=== PATIENT | male | born 1955 | race Caucasian/White ===

== ENCOUNTER → 2016-09-10 | Emergency (ER) | payer MEDICARE ==
[~2016-09-10] VITALS: Ht 180.3 cm; Wt 100.0 kg
[~2016-09-10] MED LIST: ACET325T45 PO; AMLO5TAB4 PO; DIPHTH/TET/ACEL PERTUSS (ADULT) 0.5 ML VIAL IM* ONE; DOCU240C14 PO; ERGO500037 PO; FAMO20TA18 PO; FLEETOIL PR; FLEETPED PR; HALO5AMP2 IM; LORA0.5T PO; MAGN400O4 PO; MULTI PO; RISS PO; SYN112 PO; TRAZ50TA18 PO; VLP250480 PO; [UNRECOGNIZED DRUG - CODE] PO; [UNRECOGNIZED DRUG - OTHER] PO
[2016-09-10 15:40] VITALS: Ht 180.3 cm; Wt 100.0 kg
--- NOTE | 2016-09-10 15:42 | ERD ---
ER Documentation Chief Complaint Date/Time DATE: 09/10/16 TIME: 15:37 Chief Complaint HPI 61-year-old male history of schizoaffective disorder who is an inpatient in a psychiatric facility who presents with facial laceration. The patient states that around 1 hour prior to arrival he was trying to walk very fast. He states that he was recently given Haldol. He felt wobbly. He fell to the ground hitting his head. The patient sustained a laceration to the forehead just between his eyebrows. He denies any loss of consciousness. He denies any prodrome of chest pain or shortness of breath. He does have a mild headache mild tenderness to the periorbital region on the right. He denies any neck pain. No numbness or tingling. Unknown tetanus status. ROS All systems reviewed and are negative except as per history of present illness. Medications Home Meds Reported Medications Mineral Oil* (Fleet* Mineral Oil Enema) 133 Ml Oil, [address] Q48H, ENEMA 09/10/16 Magnesium Hydroxide* (Milk Of Magnesia*) 400 Mg/5 Ml Oral.susp, 30 ML PO BID, ML 09/10/16 Trazodone Hcl* (Trazodone Hcl*) 50 Mg Tablet, 25 MG PO QHS, #30 TAB 09/10/16 Lorazepam* (Lorazepam*) 0.5 Mg Tablet, 0.5 MG PO Q6 Y for ANXIETY, TAB 09/10/16 [Hydroxyde] No Conflict Check, ML PO Q4 HYDROXIDE-MG HYDROXIDE-SIMETHICONE [id number]/5ML SUSP;30ML 30ML. 09/10/16 Acetaminophen* (Acetaminophen*) 325 Mg Tablet, 650 MG PO Q4H Y for PAIN AND OR ELEVATED TEMP, #30 TAB 09/10/16 Valproic Acid* (Valproic Acid* Liq) 250 Mg/5 Ml Syrup, 500 MG PO BID, ML 09/10/16 Risperidone* (Risperdal* Liq) 1 Mg/Ml Solution, 1 MG PO BID, ML 09/10/16 Psyllium Husk (With Sugar) (NATURAL FIBER 3.4G POWDER) 368 Gm Powder, 368 GM PO BID 09/10/16 Multivitamins* (Theragran*) 1 Tab Tab, 1 TAB PO DAILY, TAB 09/10/16 Levothyroxine Sodium* (Levothyroxine Sodium*) 112 Mcg Tablet, 112 MCG PO BEFORE BREAKFAST, #30 TAB 09/10/16 Haloperidol Lactate (HALOPERIDOL) 5 Mg/1 Ml Ampul, 5 MG IM BID 09/10/16 Famotidine* (Famotidine*) 20 Mg Tablet, 20 MG PO DAILY, #30 TAB 09/10/16 Ergocalciferol (Vitamin D2) (VITAMIN D2) 50,000 Unit Capsule, 42038 UNIT PO Q7D , CAP 09/10/16 Docusate Calcium* (Docusate Calcium*) 240 Mg Capsule, 240 MG PO DAILY, CAP 09/10/16 Amlodipine Besylate* (Norvasc*) 5 Mg Tablet, 5 MG PO DAILY, TAB 09/10/16 Discontinued Reported Medications Sod Phosphate/Sod Biphosphate* (Fleet* Enema Pediatric) 66.6 Ml Soln, 66.[address] Q48H Y for CONSTIPATION, ENEMA 09/10/16 Allergies Allergies: Coded Allergies: No Known Allergy (Unverified , 09/10/16) PMhx/Soc Schizoaffective disorder FmHx Family History: No diabetes Physical Exam Vitals Vital Signs Date Time Temp Pulse Resp B/P Pulse Ox O2 Delivery O2 Flow Rate FiO2 09/10/16 15:40 98.1 78 18 144/84 98 Physical Exam General: Well developed, well nourished, no acute distress Head: Small contusion to the forehead with a superficial oblique laceration approximately 2.0 cm just between the eyebrows right of midline, second superficial laceration approx 1.0 to the right lateral nasal bridge Eyes: Pupils equally reactive, EOM intact, no evidence of entrapment ENT: Moist mucous membranes Neck: Supple, no lymphadenopathy, No midline tenderness, deformities, step-offs to the cervical spine, full active and passive range of motion without midline pain. Respiratory: Lungs clear bilaterally, no distress Cardiovascular: RRR, no murmurs, rubs, or gallops Abdominal: Soft, non-tender, non-distended, no peritoneal signs : Deferred MSK: No edema, no unilateral swelling, 5/5 strength Neurologic: Alert and oriented, moving all extremities, normal speech, no focal weakness, no cerebellar signs Skin: Laceration as described above Psych: Normal mood Results 24 hrs Current Medications Medications (Trade) Dose Ordered Sig/Maggie Route PRN Reason Start Time Stop Time Status Last Admin Dose Admin Diphtheria/ Tetanus/Acell Pertussis (Adacel) 0.5 ml ONCE ONCE IM* 09/10/16 16:00 09/10/16 16:01 DC 09/10/16 15:47 Procedures/MDM EKG, MONITORS, & DIAGNOSTIC IMAGING: CT brain: No acute process CT facial bone: IMPRESSION: 1. Soft tissue swelling in the region of the upper and right nose. There is a small 3 mm calcification projecting over the upper midline nose, which could be chronic and/or degenerative. A tiny bony fragment is not excluded, although no donor site is identified. 2. Otherwise intact osseous structures. 3. Dental disease with periapical lucency involving the root of the right first maxillary incisor. 4. Chronic sinus disease change. PROCEDURE: Laceration Note: The patient was verbally consented prior to procedure and understands the risks , benefits, and alternatives. The patient is agreeable to procedure and has given verbal consent. Length: 2.0 cm superior with 1.0 cm lateral nasal Irrigation: Thorough irrigation was performed with pressure is normal saline Inspection: There is no evidence of deep tissue or structural injury, no evidence of foreign bodies Anesthesia: 0 Repair: Single-layer repair using Dermabond with good approximation, care was taken to assure for no contamination of ocular structures. Good approximation. A clean dressing was applied. The patient tolerated the procedure well with no complications. MEDICAL DECISION MAKING: The patient had a clear mechanical fall. The patient has a nonfocal neurologic exam. He sustained a laceration as documented above. The patient does not meet high-risk criteria and based on NEXUS cervical spine criteria there is no indication for cervical spine imaging at this time. The patient can localize and is otherwise well-appearing. The patient did hit his head and has mild periorbital tenderness. CT imaging of the brain and facial bones would be appropriate. Tetanus will be updated. ER COURSE: I offered pain medication but the patient refused. Tetanus was given. Wound care provided as documented above. Diagnostic imaging as documented above. At this time the patient is safe for discharge. The patient will be transferred back to psychiatric facility. The patient's CT is possibly consistent with nasal bone fracture though this appears to be old as there is no donor site. Regardless, treatment would be the same. No sinus involvement no indication for antibiotics. I kept the patient and/or family informed of laboratory and diagnostic imaging results throughout the emergency room course. DISPOSITION PLAN: We discussed follow up with the patient's primary care doctor within 24 to 48 hours as needed. We also discussed return to the emergency room for worsening symptoms or worsening condition. Departure Diagnosis: Primary Impression: Facial laceration Encounter type: initial encounter Qualified Code: S01.81XA - Facial laceration, initial encounter Additional Impression: Closed head injury Encounter type: initial encounter Qualified Code: S09.90XA - Closed head injury, initial encounter Condition: JENNIFER Murcia MD Sep 10, 2016 15:42
--- NOTE | 2016-09-10 16:32 | RADRPT ---
PROCEDURE: CT Head without contrast. CLINICAL INDICATION: Trauma, pain TECHNIQUE: Continuous axial CT images were obtained from the base of skull to the vertex. No cont rast was administered. The calculated radiation dose measures 720 mGy centimeters. The CTDI measures 44 mGy COMPARISON: None available FINDINGS: There is mild diffuse cerebral volume loss. The ventricles are symmetric and normal in configuratio n. There is no mass effect or midline shift. There is no abnormal intra-axial or extra-axial fluid collection. There is no evidence of intracranial hemorrhage. There are scattered areas of decreased attenuation in the supratentorial white matter, consistent wi th mild small vessel ischemic changes. There is prominent atherosclerotic vascular calcification. The bony calvarium is intact. The orbital soft tissue contents are unremarkable. Paranasal sinuses appear clear. IMPRESSION: 1. Mild age related cerebral volume loss. Mild small vessel ischemic changes. 2. Prominent atherosclerotic vascular calcification. 3. No mass effect or acute intracranial bleed. RPTAT: HBST .Dennis Blackman MD, MD Date Time Electronically viewed and signed by .Dennis Blackman MD, MD on 09/10/2016 16:32 .T/
--- NOTE | 2016-09-10 16:42 | RADRPT ---
PROCEDURE: CT facial bones CLINICAL INDICATION: Trauma, pain TECHNIQUE: Multiphase CT scan of the face was performed in the axial plane. Coronal and sagittal re-formations were performed. The calculated radiation dose measures 655 mGy centimeters. The CTDI m easures 30 mGy COMPARISON: None FINDINGS: The mandible is identified demonstrating no evidence of fracture or bony dysplasia. There is no cole dence of adjacent soft tissue swelling. The mid face and bony orbits demonstrate no evidence of acute fracture. Evaluation of the orbits de monstrates the globes to be normal in their size, shape, and attenuation bilaterally. No definite i ntra or extraconal soft tissue masses are seen. The optic nerve and nerve sheath complexes bilatera lly appear unremarkable. There is dental disease with periapical lucency around the root of the right first maxillary incisor . There is erosion of the anterior alveolar ridge. There is mucosal thickening in the paranasal si nuses. There is soft tissue swelling involving the upper and right nose region. There is a punctate calcifi c density measuring 3 mm overlying the midline upper nose. IMPRESSION: 1. Soft tissue swelling in the region of the upper and right nose. There is a small 3 mm calcifica tion projecting over the upper midline nose, which could be chronic and/or degenerative. A tiny bon y fragment is not excluded, although no donor site is identified. 2. Otherwise intact osseous structures. 3. Dental disease with periapical lucency involving the root of the right first maxillary incisor. 4. Chronic sinus disease change. RPTAT: HBST .Dennis Blackman MD, Date Time Electronically viewed and signed by .Dennis Blackman MD, MD on 09/10/2016 16:42 .T/
[2016-09-10 19:05] VITALS: BP 141/82; PULSE 66; RESP 18; TEMP 98.1
== END | disposition home or self-care (01) ==
LOC: E/R 15:34
DX: S01.81XA Laceration without foreign body of other part of head, initial encounter (principal); S09.90XA Unspecified injury of head, initial encounter; I10 Essential (primary) hypertension; E03.9 Hypothyroidism, unspecified; R40.2142 Coma scale, eyes open, spontaneous, at arrival to emergency department; R40.2252 Coma scale, best verbal response, oriented, at arrival to emergency department; R40.2362 Coma scale, best motor response, obeys commands, at arrival to emergency department; W01.198A Fall on same level from slipping, tripping and stumbling with subsequent striking against other object, initial encounter; Y92.9 Unspecified place or not applicable; Z23 Encounter for immunization
CPT/HCPCS: 70450; 70486; 90471; 90715